=== PATIENT | female | born 2005 ===

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

== ENCOUNTER 2024-05-01 00:39 | Emergency (ER) | payer OTHER ==
[~2024-05-01] VITALS: Ht 160 cm; Wt 51.7 kg
[2024-05-01] MEDS ORDERED: MethylPREDNISolone Sod Succ 125 MG Vial IV ONE (00:50)
[2024-05-01] MEDS ORDERED: Ipratropium/Albuterol SulF 2.5-0.5MG/3 ML Amp INH ONE (00:50)
[2024-05-01 01:12] LABS: BASOPHILS ABSOLUTE AUTO 0.04 K/mm3 (0.00-0.23); BASOPHILS PERCENT AUTO 0 % (0-2); EOSINOPHILS ABSOLUTE AUTO 0.02 K/mm3 (0.00-0.68); EOSINOPHILS PERCENT AUTO 0 % (0-6); Hemoglobin 12.7 g/dL (11.5-16.0); IMMATURE GRAN ABSOLUTE AUTO 0.02 K/mm3 (0.00-0.10); IMMATURE GRAN PERCENT AUTO 0 % (0-1); LYMPHOCYTES ABSOLUTE AUTO 1.47 K/mm3 (0.84-5.20); LYMPHOCYTES PERCENT AUTO 12 % (21-46); MONOCYTES ABSOLUTE AUTO 0.66 K/mm3 (0.16-1.47); MONOCYTES PERCENT AUTO 5 % (4-13); Mean Corpuscular HGB 29.1 pg (26.0-34.0); Mean Corpuscular HGB Conc 34.3 g/dL (31.5-36.5); Mean Corpuscular Volume 85 fL (80-100); Mean Platelet Volume 10.5 fL (9.1-12.4); NEUTROPHILS ABSOLUTE AUTO 9.98 K/mm3 (1.96-9.15); NEUTROPHILS PERCENT AUTO 82 % (41-73); Platelet Count 278 K/mm3 (150-400); RDW Coefficient Variation 12.6 % (11.7-14.2); RDW Standard Deviation 38.8 fL (35.1-46.3); Red Blood Cell Count 4.36 M/mm3 (3.80-5.20); White Blood Cell Count 12.19 K/mm3 (4.00-11.30)
[2024-05-01 01:26] LABS: Alanine Aminotransfer (ALT/SGP 17 U/L (12-78); Albumin/Globulin Ratio 1.1 (0.8-1.8); Alk Phos 85 U/L (45-116); Anion Gap 12 mmol/L (3-11); Aspartate Aminotrans (AST/SGOT 12 U/L (12-37); Bilirubin, Total 0.5 mg/dL (0.1-1.0); Blood Urea Nitrogen 9 mg/dL (8-21); Bun/Creatinine Ratio 13.8 (12.0-20.0); CO2, Blood 23 mmol/L (21-32); Calcium, Blood 8.5 mg/dL (8.5-10.1); Chloride, Blood 103 mmol/L (98-108); Creatinine, Blood 0.65 mg/dL (0.40-1.00); Globulin, Blood 3.7 g/dL (2.2-4.0); Glomerular Filtration Rate 130 (60-); Glucose, Blood 118 mg/dL (70-99); Potassium, Blood 3.1 mmol/L (3.5-5.5); Sodium, Blood 135 mmol/L (136-145); Total Protein, Blood 7.7 g/dL (6.4-8.2)
[2024-05-01 01:30] VITALS: BP 114/68
[2024-05-01] MEDS ORDERED: Ketorolac Tromethamine 15mg Vial IV ONE (02:05)
[2024-05-01] MEDS ORDERED: IBUP400 PO (02:06)
[2024-05-01] MEDS ORDERED: Prednisone20 MG PO (02:06)
[2024-05-01] MEDS ORDERED: ALBU90OI INH (02:06)
[2024-05-01] MEDS ORDERED: Tessalon Perle100 MG PO (02:06)
== END 2024-05-02 02:27 | disposition home or self-care (01) ==
LOC: ER 00:39
PROVIDERS: Emergency Medicine
DX: R05.9 Cough, unspecified (principal); R07.81 Pleurodynia; Z79.3 Long term (current) use of hormonal contraceptives
CPT/HCPCS: 71045; 80053; 85025; 85379; 94640; 94664; 96374; 96375; 99284-25; J1885; J2919

== ENCOUNTER 2025-02-23 04:23 | Emergency (ER) | payer OTHER ==
[~2025-02-23] VITALS: Ht 160 cm; Wt 57.1 kg
[~2025-02-23 04:23] MED LIST changes: +IBUP400 PO; +Tessalon Perle100 MG PO
[2025-02-23 04:44] VITALS: BP 116/69
[2025-02-23] MEDS ORDERED: Ipratropium/Albuterol SulF 2.5-0.5MG/3 ML Amp INH ONE (05:15)
[2025-02-23] MEDS ORDERED: Fluticasone 0.05% Nasal Spray ONE (05:15)
[2025-02-23 05:35] LABS: Influenza A, PCR NEGATIVE (NEGATIVE); Influenza B, PCR NEGATIVE (NEGATIVE); Resp Syncytial Virus, PCR NEGATIVE (NEGATIVE); SARS-Cov-2 (COVID-19) PCR, MMC NEGATIVE (NEGATIVE)
[2025-02-23] MEDS ORDERED: Ondansetron 4 MG SoluTab SL ONE (06:00)
[2025-02-23] MEDS ORDERED: RX Prepack 2 Tabs Ondansetron ODT 4MG UD ONE (06:00)
== END 2025-02-23 06:03 | disposition home or self-care (01) ==
LOC: ER 04:23
PROVIDERS: Emergency Medicine
DX: J06.9 Acute upper respiratory infection, unspecified (principal); F17.290 Nicotine dependence, other tobacco product, uncomplicated; Z79.52 Long term (current) use of systemic steroids; Z79.899 Other long term (current) drug therapy; Z88.0 Allergy status to penicillin; Z88.2 Allergy status to sulfonamides
CPT/HCPCS: 87637; 99283-25; A9270